=== PATIENT | male | born 1995 | race African-American/Black ===

== ENCOUNTER 2016-09-27 08:29 | Emergency (ER) | payer OTHER ==
[2016-09-27 08:36] VITALS: BP 125/83
--- NOTE | 2016-09-27 16:00 | ED ---
Henry Jeff Matthew, scribed for Greg Walker MD on 09/27/16 at 0846 . Medical Screening - HPI Summary HPI Summary: A 20 y/o male presents to the ED for a legal blood draw. The patient denies any injuries and has no PMHx. He states that he currently feels fine. - History of Current Complaint Chief Complaint: EDGeneral Stated Complaint: BLOOD DRAW Time Seen by Provider: 09/27/16 08:37 Onset/Duration: Atraumatic, Resolved Associated Signs and Symptoms: Negative PMH/Surg Hx/FS Hx/Imm Hx Endocrine/Hematology History: Denies: Hx Diabetes, Hx Thyroid Disease Cardiovascular History: Denies: Hx Hypertension Respiratory History: Denies: Hx Asthma, Hx Chronic Obstructive Pulmonary Disease (COPD) GI History: Denies: Hx Ulcer Infectious Disease History: No Infectious Disease History: Denies: Hx Clostridium Difficile, Hx Hepatitis, Hx Human Immunodeficiency Virus (HIV), Hx of Known/Suspected MRSA, Hx Shingles, Hx Tuberculosis, History Other Infectious Disease, Traveled Outside the in Last 30 Days - Family History Known Family History: Positive: Hypertension, Diabetes - Social History Alcohol Use: Occasionally Substance Use Type: Reports: Marijuana Substance Use Comment - Amount & Last Used: EVERY OTHER DAY Smoking Status (MU): Light Every Day Tobacco Smoker Amount Used/How Often: 1-2 PER DAY Review of Systems Constitutional: Negative Eyes: Negative ENT: Negative Cardiovascular: Negative Respiratory: Negative Gastrointestinal: Negative Genitourinary: Negative Musculoskeletal: Negative Skin: Negative Neurological: Negative Psychological: Normal All Other Systems Reviewed And Are Negative: Yes Physical Exam Triage Information Reviewed: Yes Vital Signs On Initial Exam: Initial Vitals Temp Pulse Resp BP Pulse Ox 97.4 F 74 18 125/83 97 09/27/16 08:33 09/27/16 08:33 09/27/16 08:33 09/27/16 08:33 09/27/16 08:33 Vital Signs Reviewed: Yes Appearance: Positive: Well-Appearing. Negative: Signs of Trauma Skin: Positive: Warm, Dry Eyes: Positive: EOMI, PAM ENT: Positive: Normal ENT inspection Neck: Positive: Supple Respiratory/Lung Sounds: Positive: Clear to Auscultation, Breath Sounds Present Cardiovascular: Positive: RRR Musculoskeletal: Positive: Strength/ROM Intact Neurological: Positive: Alert, Oriented to Person Place, Time Psychiatric: Positive: Affect/Mood Appropriate Diagnostics - Vital Signs Vital Signs Temp Pulse Resp BP Pulse Ox 09/27/16 08:33 97.4 F 74 18 125/83 97 - Laboratory Lab Statement: Any lab studies that have been ordered have been reviewed, and results considered in the medical decision making process. Course/Dx - Course Assessment/Plan: DISCHARGE HOME STABLE WITH POLICE - Diagnoses Provider Diagnoses: legal blood draw Discharge - Discharge Plan Condition: Stable Disposition: HOME Referrals: Nadira Damian DO [Primary Care Provider] - Additional Instructions: YOU WERE SEEN IN THE EMERGENCY DEPARTMENT FOR A LEGAL BLOOD DRAW. FOLLOW UP WITH YOUR DOCTOR. RETURN TO THE EMERGENCY DEPARTMENT FOR ANY WORSENING OF YOUR CONDITION OR QUESTIONS OR CONCERNS. The documentation as recorded by the Henry ocampo Matthew accurately reflects the service I personally performed and the decisions made by me, Greg Walker MD.
== END 2016-09-27 09:10 | disposition home or self-care (01) ==
LOC: ED 08:29
DX: Z04.9 Encounter for examination and observation for unspecified reason (principal)
CPT/HCPCS: 99281